=== PATIENT | female | born 1990 | race Hispanic/Latino ===

== ENCOUNTER 2021-03-26 23:35 | Emergency (ER) | payer MEDICAID, OTHER ==
[~2021-03-26] VITALS: Ht 162.6 cm; Wt 90.7 kg
[2021-03-27 00:08] LABS: BASOPHILS % (AUTO) 0.3 % (0.0-5.0); EOSINOPHILS % (AUTO) 0.7 % (0.0-8.0); HEMATOCRIT 36.5 % (36-48); MEAN CORPUSCULAR HEMOGLOBIN 25.7 pg (27.0-33.0); MEAN CORPUSCULAR HGB CONC 30.7 g/dL (32.0-36.0); MEAN CORPUSCULAR VOLUME 83.7 fL (79-99); MONOCYTES % (AUTO) 5.8 % (3.0-13.0); NEUTROPHILS % (AUTO) 78.7 % (40.0-77.0); PLATELET COUNT (AUTO) 318 K/uL (130-400); RED BLOOD CELL COUNT(AUTO) 4.36 MIL/uL (4.00-5.50); RED CELL DISTRIBUTION WIDTH 15.3 % (11.0-15.5); WHITE BLOOD COUNT (AUTO) 16.6 K/uL (4.8-10.8)
[2021-03-27 00:25] LABS: INR 1.01 (0.85-1.15)
[2021-03-27 00:26] LABS: PARTIAL THROMBOPLASTIN TIME 29.9 SEC (26.3-35.5)
[2021-03-27] MEDS ORDERED: ACETAMINOPHEN 500 MG TABLET ONE (00:52)
[2021-03-27] MEDS ORDERED: DOXY-336 PO (01:10)
[2021-03-27] MEDS ORDERED: MEDR10TA PO (01:10)
[2021-03-27 01:22] VITALS: BP 121/85
== END 2021-03-27 01:23 | disposition home or self-care (01) ==
LOC: EDH 23:35
DX: N93.8 Other specified abnormal uterine and vaginal bleeding (principal); J06.9 Acute upper respiratory infection, unspecified; Z20.822 Contact with and (suspected) exposure to COVID-19
CPT/HCPCS: 36415; 84703; 85025; 85610; 85730; 87635; 99283; C9803